=== PATIENT | female | born 1960 | race Caucasian/White ===

== ENCOUNTER 2024-04-18 06:07 | Day surgery (SDC) | payer MEDICARE, MEDICAID ==
[~2024-04-18] VITALS: Ht 170.2 cm; Wt 83.2 kg
[2024-04-18] MEDS: cefazolin 2gm/D5W 100mL 100 ML IV ONE (05:30)
[~2024-04-18 06:07] MED LIST: ALBU18HF2 INH; AMLO2.5T5 PO; BREX2TAB PO; CITA20TA28 PO; GLIP2.5T29 PO; Insulin Reg/NS 100units/100mL 100 ML IV SCH; LOSA100T58 PO; SIMV-42 PO; dextrose 50%-water 50ml dispensing syringe IV PRN
[2024-04-18 06:30] VITALS: BP 140/75; PULSE 73; RESP 15; RESP 16; TEMP 97.9; O2SAT 99
[2024-04-18] MEDS ORDERED: midazolam 1 mg/ML 2ml injection IV ONE (07:45)
[2024-04-18 07:47] LABS: HEMOGLOBIN A1C 5.4 % (4.5-6.2)
[2024-04-18 07:53] VITALS: BP_SYST 140; PULSE 73
[2024-04-18] MEDS: metoprolol tartrate 12.5mg (1/2 tablet) PO ONE (07:53)
[2024-04-18] MEDS: ringers solution, lacted 1,000 ML IV SCH (07:54)
[2024-04-18] MEDS: famotidine 20mg tablet PO ONE (07:55)
[2024-04-18 08:00] LABS: ALBUMIN 3.4 G/DL (3.4-5.0); ALBUMIN/GLOBULIN RATIO 0.9 (1.1-1.5); ALKALINE PHOSPHATASE 51 IU/L (46-116); ANION GAP 7 (8-16); BLOOD UREA NITROGEN 8 MG/DL (7-18); BUN/CREATININE RATIO 10.8 (10.0-20.0); CALCIUM 8.6 MG/DL (8.5-10.1); CHLORIDE 106 MMOL/L (99-107); CREATININE 0.74 MG/DL (0.40-0.90); GLUCOSE 85 MG/DL (70-104); POTASSIUM 3.7 MMOL/L (3.5-5.1); PRE OP ALT 27 U/L (30-65); PRE OP ANION GAP 7 (8-16); PRE OP AST 34 U/L (10-37); PRE OP BILIRUB, TOTAL 0.7 MG/DL (0.0-1.0); PRE OP GLUCOSE 85 MG/DL (70-104); PRE OP POTASSIUM 3.7 MMOL/L (3.4-5.1); PRE OP SODIUM 138 MMOL/L (135-145); SODIUM 138 MMOL/L (135-145); TOTAL CARBON DIOXIDE 24.8 MMOL/L (24-32); TOTAL PROTEIN 7.4 G/DL (6.4-8.2); eCRCL 75 ML/MIN; eGFR 79 ML/MIN
[2024-04-18 11:52] LABS: BILIRUBIN,URINE NEGATIVE (Neg); CLARITY,URINE CLEAR (Clear); COLOR,URINE YELLOW (Yellow); GLUCOSE, URINE NEGATIVE (Neg); KETONES,URINE NEGATIVE (Neg); LEUKOCYTE ESTERASE ,URINE TRACE (Neg); NITRITES, URINE NEGATIVE (Neg); OCCULT BLOOD,URINE NEGATIVE (Neg); PH,URINE 6.5 (4.8-8.0); PROTEIN,URINE NEGATIVE (Neg); UROBILINOGEN,URINE 0.2 E.U/dL (0.2-1.0)
[2024-04-18 11:57] LABS: UA COLLECTION TYPE VOIDED
[2024-04-18 11:58] LABS: BACTERIA,URINE FEW /HPF (Neg); MUCUS STRANDS FEW /LPF (Neg); RBC,URINE 0-2 /HPF (0-2); SQUAMOUS EPITHELIAL CELL,UR MODERATE /LPF (FEW); WBC,URINE 0-4 /HPF (0-4)
== END 2024-04-18 11:00 | disposition home or self-care (01) ==
LOC: PAS IN 06:07 → UNDOADMIN 06:07 → OR 06:07 → EDSTATUS 08:30 → OR 11:00
PROVIDERS: ATTEND Thoracic Surgery (Cardiothoracic Vascular Surgery)
DX: I25.10 Atherosclerotic heart disease of native coronary artery without angina pectoris (principal); Z53.8 Procedure and treatment not carried out for other reasons; I10 Essential (primary) hypertension; E11.9 Type 2 diabetes mellitus without complications; E66.9 Obesity, unspecified; E78.5 Hyperlipidemia, unspecified; Z79.84 Long term (current) use of oral hypoglycemic drugs; Z79.899 Other long term (current) drug therapy; Z98.890 Other specified postprocedural states; Z68.28 Body mass index [BMI] 28.0-28.9, adult; Z88.0 Allergy status to penicillin
CPT/HCPCS: 36415; 36600; 71045; 80048; 80053; 80061; 81001; 82803; 82948; 83036; 85018; 85025; 85610; 85730; 86870; 86885; 86900; 86901; 86902; 86905; 86922; 87081; 87088; 93005; 93880; A4333; A4615; A6258; A6402; C1894; J0690; J1644; J1815; J2001; J2250; J3010; J3490; J7030; J7120; Q0163; Q9967; Z7610; 93458; 99152; A6449

== ENCOUNTER 2024-04-25 05:56 | Inpatient (IN) | payer MEDICARE, MEDICAID ==
[2024-04-25] VITALS (22 sets, daily range): BP systolic 124–165; BP diastolic 44–83; PULSE 74–107; RESP 12–22; TEMP 99.1; O2SAT 87–100
[~2024-04-25] VITALS: Ht 170.2 cm; Wt 86.7 kg
[2024-04-25] MEDS: Insulin Reg/NS 100units/100mL 100 ML IV SCH (05:30)
[~2024-04-25 05:56] MED LIST changes: -Insulin Reg/NS 100units/100mL 100 ML IV SCH; +cefazolin 2gm/D5W 100mL 100 ML IV ONE; -dextrose 50%-water 50ml dispensing syringe IV PRN
[2024-04-25] MEDS: ceFAZolin 1000mg inj ONE (06:08)
[2024-04-25] MEDS: heparin 10,000 units/1 ML INJ ONE (06:08)
[2024-04-25] MEDS: BUPIVAcaine/PF 2.5mg/ml (0.25%) 10ml vial ONE (06:08)
[2024-04-25] MEDS: ringers solution, lacted 1,000 ML IV SCH (07:14)
[2024-04-25] MEDS: vancomycin 1,500 MG in NS 300ml IV soln IV ONE (07:14)
[2024-04-25] MEDS: cefazolin 2gm/D5W 100mL 100 ML IV ONE (07:20)
[2024-04-25] MEDS: metoprolol tartrate 12.5mg (1/2 tablet) PO ONE (07:24)
[2024-04-25] MEDS: famotidine 20mg tablet PO ONE (07:25)
[2024-04-25] MEDS ORDERED: MIDAZolam 1mg/ml 10ml vial ONE (07:38)
[2024-04-25] MEDS ORDERED: SUfentanil 50mcg/ml 1ml amp IV ONE (07:39)
[2024-04-25] MEDS ORDERED: isoflurane 100ml inhalation liquid IH ONE (07:45)
[2024-04-25] MEDS: FENTANYL-0.9 % NACL/PF 100 ML IV SCH (07:50)
[2024-04-25] MEDS ORDERED: fentaNYL/PF 50MCG/1 ML 2ML syringe IV PRN (07:50)
[2024-04-25] MEDS: midazolam 100mg in NS 100ml 100 ML IV SCH (07:50)
[2024-04-25] MEDS: midazolam 1 mg/ML 2ml injection IV ONE ×2 (07:50→07:52)
[2024-04-25] MEDS ORDERED: papaverine 30 mg/ml 2ml inj. ONE (08:00)
[2024-04-25] MEDS: BUPIVAcaine/PF 2.5mg/ml (0.25%) 10ml vial IJ ONE (08:00)
[2024-04-25 08:35] LABS: ABG BASE EXCESS -2.6 mmol/L (-2.0-2.0); ABG HCO3 22.1 mmol/L (22.0-26.0); ABG OXYGEN SATURATION 99.6 % (92-98.5); ABG PCO2 37.9 mmHg (35.0-48.0); ABG PH 7.383 (7.350-7.450); ABG PO2 416.8 mmHg (75.0-100.0); CL (ABG) 106 mmol/L (99-107); FCOHb 3.1 % (0.5-1.5); FHHb 0.4 % (0.0-5.0); FMetHb 0.3 % (0.0-1.5); FO2Hb 96.2 % (94-97); GLUCOSE (ABG) 159 mg/dl (70-104); IONIZED CA (ABG) 1.07 mmol/L (1.10-1.30); TOTAL HEMOGLOBIN 13.3 G/dl (12.0-16.0)
[2024-04-25] MEDS ORDERED: LIDOcaine 2% (20mg/ml) 5ml vial ONE (08:47)
[2024-04-25] MEDS ORDERED: propofol inj 20 ML IV ONE (08:47)
[2024-04-25] MEDS ORDERED: 0.9 % SODIUM CHLORIDE 10 ML VIAL ONE (08:47)
[2024-04-25] MEDS ORDERED: rocuronium 10mg/ml inj IV ONE ×3 (08:47)
[2024-04-25] MEDS ORDERED: phenylephrine 10mg/ml inj. -priapism dosing ONE (08:47)
[2024-04-25] MEDS ORDERED: albumin (Human) 5% 250ml 250 ML IV ONE (08:51)
[2024-04-25] MEDS ORDERED: succinylcholine 20mg/ml inj IV ONE (08:57)
[2024-04-25 09:46] LABS: ABG BASE EXCESS -1.3 mmol/L (-2.0-2.0); ABG HCO3 24.9 mmol/L (22.0-26.0); ABG OXYGEN SATURATION 98.8 % (92-98.5); ABG PCO2 47.5 mmHg (35.0-48.0); ABG PH 7.337 (7.350-7.450); ABG PO2 151.5 mmHg (75.0-100.0); CL (ABG) 107 mmol/L (99-107); FCOHb 2.5 % (0.5-1.5); FHHb 1.2 % (0.0-5.0); FMetHb 0.3 % (0.0-1.5); GLUCOSE (ABG) 141 mg/dl (70-104); IONIZED CA (ABG) 1.08 mmol/L (1.10-1.30); K (ABG) 4.2 mmol/L (3.5-5.1); TOTAL HEMOGLOBIN 12.7 G/dl (12.0-16.0)
[2024-04-25] MEDS ORDERED: LOSA50TA64 PO (10:39)
[2024-04-25] MEDS ORDERED: dexamethasone sod phosphate 4mg/ml inj. ONE (10:51)
[2024-04-25] MEDS ORDERED: ondansetron/PF 4mg/2ml inj ONE (10:51)
[2024-04-25 10:58] LABS: ABG BASE EXCESS -2.2 mmol/L (-2.0-2.0); ABG HCO3 23.1 mmol/L (22.0-26.0); ABG OXYGEN SATURATION 98.3 % (92-98.5); ABG PCO2 41.9 mmHg (35.0-48.0); ABG PO2 136.8 mmHg (75.0-100.0); ACTIVATED CLOTTING TIME 147 SEC (101-148); CL (ABG) 107 mmol/L (99-107); FCOHb 1.5 % (0.5-1.5); FHHb 1.7 % (0.0-5.0); FMetHb 0.3 % (0.0-1.5); FO2Hb 96.5 % (94-97); GLUCOSE (ABG) 151 mg/dl (70-104); IONIZED CA (ABG) 1.05 mmol/L (1.10-1.30); K (ABG) 4.2 mmol/L (3.5-5.1)
[2024-04-25 12:13] LABS: ABG BASE EXCESS -7.5 mmol/L (-2.0-2.0); ABG HCO3 19.5 mmol/L (22.0-26.0); ABG OXYGEN SATURATION 98.5 % (92-98.5); ABG PCO2 (T) 43.6 mmHg (32.0-45.0); ABG PH (T) 7.264 (7.350-7.450); ABG PO2 (T) 141.9 mmHg (75.0-100.0); FCOHb 1.4 % (0.5-1.5); FHHb 1.5 % (0.0-5.0); FMetHb 0.3 % (0.0-1.5); FO2Hb 96.8 % (94-97); MODE VENT - SIMV/VC; PATIENT TEMPERATURE 36.1; PEEP 5 cm H2O; RESPIRATORY RATE 12 b/min; TIDAL VOLUME 600 mL; TOTAL HEMOGLOBIN 13.3 G/dl (12.0-16.0)
[2024-04-25] MEDS: morphine 2 MG/ML inj. syringe IV PRN (12:14)
[2024-04-25] MEDS: albumin (Human) 5% 250ml 250 ML IV ONE (12:31)
[2024-04-25] MEDS ORDERED: ondansetron/PF 4mg/2ml inj IV PRN (12:35)
[2024-04-25] MEDS ORDERED: mineral oil 133ml enema RC PRN (12:35)
[2024-04-25] MEDS ORDERED: potassium CL 10mEq/100ml bag 100 ML IV PRN (12:35)
[2024-04-25] MEDS ORDERED: potassium Cl 40MEQ/1/2NS 520ml 520 ML IV PRN (12:35)
[2024-04-25] MEDS ORDERED: sodium phosphate inj. 30 MMOL in dextrose 5%-water 250 ML IV PRN (12:35)
[2024-04-25] MEDS ORDERED: Insulin Reg/NS 100units/100mL 100 ML IV SCH (12:35)
[2024-04-25] MEDS ORDERED: potassium Cl 40MEQ/270ML bag 250 ML IV PRN (12:35)
[2024-04-25] MEDS ORDERED: Neutra Phos packet PO PRN (12:35)
[2024-04-25] MEDS ORDERED: acetaminophen 325mg tablet PO PRN (12:35)
[2024-04-25] MEDS ORDERED: morphine 4 MG/ML inj SYRINge IV PRN (12:35)
[2024-04-25] MEDS ORDERED: metoclopramide 5 mg/ml inj IV PRN (12:35)
[2024-04-25] MEDS ORDERED: DOPamine 400mg/D5W 250ml 250 ML IV PRN (12:35)
[2024-04-25] MEDS ORDERED: HYDROcodone/acetaminophen 10/325mg tab PO PRN (12:35)
[2024-04-25] MEDS ORDERED: normal saline 250ml IV soln 250 ML IV PRN (12:35)
[2024-04-25] MEDS ORDERED: potassium Cl 20 mEq SR tablet PO PRN (12:35)
[2024-04-25] MEDS ORDERED: insulin glargine (Lantus) pen - multi-dose SQ PRN (12:35)
[2024-04-25] MEDS ORDERED: dextrose 50%-water 50ml dispensing syringe IV PRN (12:35)
[2024-04-25] MEDS ORDERED: morphine 2 MG/ML inj. syringe IV PRN (12:35)
[2024-04-25] MEDS: sodium chloride 0.45% 1,000 ML IV SCH (12:47)
[2024-04-25 12:55] LABS: BASOPHILS % (AUTO) 0.4 % (0-1); EOSINOPHILS # (AUTO) 0.1 X10'3 (0-0.9); EOSINOPHILS % (AUTO) 1.1 % (0-6); HEMATOCRIT 37.5 % (35.0-45.0); HEMOGLOBIN 12.5 g/dl (12.0-16.0); LYMPHOCYTES # (AUTO) 2.9 X10'3 (1.1-4.8); LYMPHOCYTES % (AUTO) 24.7 % (21-51); MEAN CORPUSCULAR HEMOGLOBIN 33.9 PG (27.0-31.0); MEAN CORPUSCULAR HGB CONC 33.4 g/dL (33.0-36.5); MEAN CORPUSCULAR VOLUME 101.6 FL (78-98); MEAN PLATELET VOLUME 7.8 FL (7.4-10.4); MONOCYTES # (AUTO) 0.6 X10'3 (0-0.9); MONOCYTES % (AUTO) 4.7 % (2-12); NEUTROPHILS # (AUTO) 8.2 X10'3 (1.8-7.7); NEUTROPHILS % (AUTO) 69.1 % (42-75); PLATELET COUNT 177 X10'3 (140-440); RED BLOOD COUNT 3.69 X10'6 (4.20-5.60); RED CELL DISTRIBUTION WIDTH 14.6 % (11.5-14.5); WHITE BLOOD COUNT 11.9 X10'3 (4.5-11.0)
[2024-04-25 12:57] LABS: APTT 48 SECONDS (22-32); FIBRINOGEN 248 MG/DL (177-424); INR 1.1 INR; PROTHROMBIN TIME 11.9 SECONDS (9.0-12.0)
[2024-04-25 12:59] LABS: ALANINE AMINOTRANSFERASE 19 U/L (12-78); ALBUMIN 3.1 G/DL (3.4-5.0); ALBUMIN/GLOBULIN RATIO 1.1 (1.1-1.5); ALKALINE PHOSPHATASE 37 IU/L (46-116); ANION GAP 7 (8-16); ASPARTATE AMINO TRANSFERASE 26 U/L (10-37); BILIRUBIN,TOTAL 0.8 MG/DL (0.1-1.0); BLOOD UREA NITROGEN 10 MG/DL (7-18); BUN/CREATININE RATIO 13.9 (10.0-20.0); CALCIUM 7.6 MG/DL (8.5-10.1); CHLORIDE 106 MMOL/L (99-107); CREATININE 0.72 MG/DL (0.40-0.90); GLUCOSE 145 MG/DL (70-104); MAGNESIUM 1.5 MG/DL (1.5-2.4); PHOSPHORUS 2.8 MG/DL (2.3-4.5); POTASSIUM 4.1 MMOL/L (3.5-5.1); SODIUM 138 MMOL/L (135-145); TOTAL CARBON DIOXIDE 24.7 MMOL/L (24-32); eCRCL 77 ML/MIN; eGFR 82 ML/MIN
[2024-04-25] MEDS: albumin (Human) 5% 250ml 250 ML IV PRN (13:37)
[2024-04-25] MEDS: gabapentin 300mg capsule PO SCH (13:38)
[2024-04-25] MEDS: potassium Cl 20mEq/100mL bag 100 ML IV PRN (13:39)
[2024-04-25] MEDS: magnesium sulf-water 4G/100mL 100 ML IV PRN (13:40)
[2024-04-25 14:52] LABS: ABG BASE EXCESS -2.7 mmol/L (-2.0-2.0); ABG HCO3 22.2 mmol/L (22.0-26.0); ABG OXYGEN SATURATION 93.9 % (92-98.5); ABG PH (T) 7.382 (7.350-7.450); ABG PO2 (T) 71.9 mmHg (75.0-100.0); FCOHb 0.9 % (0.5-1.5); FMetHb 0.3 % (0.0-1.5); FO2Hb 92.8 % (94-97); MODE VENT - CPAP/PS; PATIENT TEMPERATURE 36.7; PEEP 5 cm H2O; TOTAL HEMOGLOBIN 11.7 G/dl (12.0-16.0)
[2024-04-25] MEDS: ceFAZolin/D5W- 1GM premix 50 ML IV SCH (16:22)
[2024-04-25] MEDS: magnesium sulf-water 2g/50mL 50 ML IV PRN (17:55)
[2024-04-25] MEDS: niCARDipine-NS 40mg/200ml IVPB 200 ML IV PRN (18:17)
[2024-04-25 19:09] LABS: ABG BASE EXCESS -2.3 mmol/L (-2.0-2.0); ABG HCO3 22.6 mmol/L (22.0-26.0); ABG OXYGEN SATURATION 90.8 % (92-98.5); ABG PCO2 (T) 40.4 mmHg (32.0-45.0); ABG PH (T) 7.368 (7.350-7.450); ABG PO2 (T) 64.5 mmHg (75.0-100.0); FCOHb 0.7 % (0.5-1.5); FHHb 9.1 % (0.0-5.0); FLOW 14 L/min; FMetHb 0.3 % (0.0-1.5); FO2Hb 89.9 % (94-97); MODE MASK - SIMPLE; PATIENT TEMPERATURE 37.7; TOTAL HEMOGLOBIN 12.1 G/dl (12.0-16.0)
[2024-04-25] MEDS: methylPREDNISolone sod succ/PF 40mg inj. IV SCH (19:16)
[2024-04-25] MEDS: albuterol 2.5 MG/3 ML nebule NEB PRN (19:16)
[2024-04-25] MEDS: furosemide 40mg/4ml inj IV SCH (19:16)
[2024-04-25] MEDS: vancomycin/NS 1 GM ADD-VANTAGE 250 ML IV SCH (20:50)
[2024-04-25] MEDS: mupirocin 2% nasal ointment 1gm UD NS SCH (20:50)
[2024-04-25] MEDS: atorvastatin 10mg tablet PO SCH (20:51)
[2024-04-25] MEDS: sennosides/docusate sodium tablet PO SCH (20:51)
[2024-04-25] MEDS: citalopram 20mg tablet PO SCH (21:00)
[2024-04-25 21:42] LABS: BASOPHILS % (AUTO) 0.1 % (0-1); EOSINOPHILS % (AUTO) 0 % (0-6); HEMATOCRIT 34.8 % (35.0-45.0); HEMOGLOBIN 11.6 g/dl (12.0-16.0); LYMPHOCYTES # (AUTO) 0.5 X10'3 (1.1-4.8); LYMPHOCYTES % (AUTO) 4.8 % (21-51); MEAN CORPUSCULAR HEMOGLOBIN 33.4 PG (27.0-31.0); MEAN CORPUSCULAR HGB CONC 33.2 g/dL (33.0-36.5); MEAN CORPUSCULAR VOLUME 100.5 FL (78-98); MONOCYTES # (AUTO) 0.4 X10'3 (0-0.9); MONOCYTES % (AUTO) 3.3 % (2-12); NEUTROPHILS # (AUTO) 9.9 X10'3 (1.8-7.7); NEUTROPHILS % (AUTO) 91.8 % (42-75); PLATELET COUNT 170 X10'3 (140-440); RED BLOOD COUNT 3.46 X10'6 (4.20-5.60); RED CELL DISTRIBUTION WIDTH 14.3 % (11.5-14.5); WHITE BLOOD COUNT 10.8 X10'3 (4.5-11.0)
[2024-04-25] MEDS: mineral oil/petrolatum ophthal oint EACHEYE SCH (21:45)
[2024-04-25 21:56] LABS: ALBUMIN 3.4 G/DL (3.4-5.0); ANION GAP 8 (8-16); BLOOD UREA NITROGEN 8 MG/DL (7-18); BUN/CREATININE RATIO 11.8 (10.0-20.0); CALCIUM 7.8 MG/DL (8.5-10.1); CHLORIDE 102 MMOL/L (99-107); CREATININE 0.68 MG/DL (0.40-0.90); GLUCOSE 127 MG/DL (70-104); MAGNESIUM 3.1 MG/DL (1.5-2.4); PHOSPHORUS 2.2 MG/DL (2.3-4.5); POTASSIUM 4.1 MMOL/L (3.5-5.1); SODIUM 134 MMOL/L (135-145); TOTAL CARBON DIOXIDE 24.3 MMOL/L (24-32); eCRCL 81 ML/MIN; eGFR 87 ML/MIN
[2024-04-25] MEDS: nitroGLYCERIN-Tridil 50MG/D5W 250 ML IV PRN (22:06)
[2024-04-25] MEDS: sodium phosphate inj. 15 MMOL in dextrose 5%-water 250 ML IV PRN (22:24)
[2024-04-26] VITALS (29 sets, daily range): BP systolic 93–145; BP diastolic 33–74; PULSE 85–113; RESP 12–21; O2SAT 92–97
[2024-04-26 04:01] LABS: BASOPHILS % (AUTO) 0.1 % (0-1); EOSINOPHILS % (AUTO) 0.1 % (0-6); HEMOGLOBIN 11.6 g/dl (12.0-16.0); LYMPHOCYTES # (AUTO) 0.8 X10'3 (1.1-4.8); LYMPHOCYTES % (AUTO) 6.4 % (21-51); MEAN CORPUSCULAR HEMOGLOBIN 33.5 PG (27.0-31.0); MEAN CORPUSCULAR HGB CONC 33.2 g/dL (33.0-36.5); MEAN PLATELET VOLUME 7.7 FL (7.4-10.4); MONOCYTES # (AUTO) 0.4 X10'3 (0-0.9); NEUTROPHILS # (AUTO) 11.8 X10'3 (1.8-7.7); NEUTROPHILS % (AUTO) 90.4 % (42-75); PLATELET COUNT 167 X10'3 (140-440); RED BLOOD COUNT 3.47 X10'6 (4.20-5.60); RED CELL DISTRIBUTION WIDTH 14.5 % (11.5-14.5)
[2024-04-26 04:17] LABS: APTT 27 SECONDS (22-32); PROTHROMBIN TIME 10.5 SECONDS (9.0-12.0)
[2024-04-26 04:18] LABS: ALANINE AMINOTRANSFERASE 18 U/L (12-78); ALBUMIN 3.2 G/DL (3.4-5.0); ALKALINE PHOSPHATASE 29 IU/L (46-116); ANION GAP 8 (8-16); ASPARTATE AMINO TRANSFERASE 29 U/L (10-37); BILIRUBIN,TOTAL 0.7 MG/DL (0.1-1.0); BLOOD UREA NITROGEN 8 MG/DL (7-18); BUN/CREATININE RATIO 9.4 (10.0-20.0); CALCIUM 7.8 MG/DL (8.5-10.1); CHLORIDE 103 MMOL/L (99-107); CREATININE 0.85 MG/DL (0.40-0.90); GLUCOSE 150 MG/DL (70-104); MAGNESIUM 2.6 MG/DL (1.5-2.4); PHOSPHORUS 2.5 MG/DL (2.3-4.5); POTASSIUM 4.2 MMOL/L (3.5-5.1); SODIUM 136 MMOL/L (135-145); TOTAL CARBON DIOXIDE 24.6 MMOL/L (24-32); TOTAL PROTEIN 6.3 G/DL (6.4-8.2); eCRCL 65 ML/MIN; eGFR 67 ML/MIN
[2024-04-26] MEDS: aspirin 81mg tab.chew PO SCH (07:26)
[2024-04-26] MEDS: metoprolol tartrate 12.5mg (1/2 tablet) PO SCH (07:26)
[2024-04-26] MEDS: HYDROcodone/acetaminophen 10/325mg tab PO PRN (08:08)
[2024-04-26] MEDS: clopidogrel 75mg tablet PO SCH (12:18)
[2024-04-26] MEDS ORDERED: dextrose 50%-water 50ml dispensing syringe IV PRN ×2 (15:50)
[2024-04-26] MEDS ORDERED: DEXTROSE 15 GM of carb/4 tabs (each vial/BOTTLE has 4 tablets) PO PRN ×2 (15:50)
[2024-04-26] MEDS ORDERED: glucagon, human recombinant 1mg kit SUBCUT PRN (15:50)
[2024-04-26 16:39] LABS: ALANINE AMINOTRANSFERASE 20 U/L (12-78); ALBUMIN 3.1 G/DL (3.4-5.0); ALBUMIN/GLOBULIN RATIO 0.9 (1.1-1.5); ALKALINE PHOSPHATASE 33 IU/L (46-116); ANION GAP 6 (8-16); ASPARTATE AMINO TRANSFERASE 24 U/L (10-37); BILIRUBIN,TOTAL 0.7 MG/DL (0.1-1.0); BLOOD UREA NITROGEN 15 MG/DL (7-18); BUN/CREATININE RATIO 17.2 (10.0-20.0); CALCIUM 8.3 MG/DL (8.5-10.1); CHLORIDE 103 MMOL/L (99-107); CREATININE 0.87 MG/DL (0.40-0.90); GLUCOSE 220 MG/DL (70-104); MAGNESIUM 2.3 MG/DL (1.5-2.4); POTASSIUM 4.5 MMOL/L (3.5-5.1); SODIUM 137 MMOL/L (135-145); TOTAL CARBON DIOXIDE 28.1 MMOL/L (24-32); TOTAL PROTEIN 6.5 G/DL (6.4-8.2); eCRCL 64 ML/MIN; eGFR 66 ML/MIN
[2024-04-26] MEDS: INSULIN LISPRO 100 UNIT/ML INSULN.PEN MULTI-DOSE SQ SCH (17:06)
[2024-04-26] MEDS: insulin glargine (Lantus) pen - multi-dose SQ SCH (20:17)
[2024-04-27] VITALS (21 sets, daily range): BP systolic 92–119; BP diastolic 40–67; PULSE 82–105; RESP 12–22; TEMP 97.6–98.4; O2SAT 92–97
[2024-04-27 03:47] LABS: BASOPHILS % (AUTO) 0.3 % (0-1); EOSINOPHILS % (AUTO) 0 % (0-6); HEMATOCRIT 33.9 % (35.0-45.0); HEMOGLOBIN 11.1 g/dl (12.0-16.0); LYMPHOCYTES # (AUTO) 1.5 X10'3 (1.1-4.8); LYMPHOCYTES % (AUTO) 8.2 % (21-51); MEAN CORPUSCULAR HEMOGLOBIN 33.1 PG (27.0-31.0); MEAN CORPUSCULAR HGB CONC 32.8 g/dL (33.0-36.5); MEAN CORPUSCULAR VOLUME 100.9 FL (78-98); MEAN PLATELET VOLUME 8.1 FL (7.4-10.4); MONOCYTES # (AUTO) 0.9 X10'3 (0-0.9); MONOCYTES % (AUTO) 5.3 % (2-12); NEUTROPHILS # (AUTO) 15.2 X10'3 (1.8-7.7); NEUTROPHILS % (AUTO) 86.2 % (42-75); PLATELET COUNT 149 X10'3 (140-440); RED BLOOD COUNT 3.36 X10'6 (4.20-5.60); RED CELL DISTRIBUTION WIDTH 14.3 % (11.5-14.5); WHITE BLOOD COUNT 17.7 X10'3 (4.5-11.0)
[2024-04-27 03:52] LABS: ALBUMIN 3.1 G/DL (3.4-5.0); ANION GAP 5 (8-16); BLOOD UREA NITROGEN 18 MG/DL (7-18); BUN/CREATININE RATIO 28.1 (10.0-20.0); CALCIUM 8.5 MG/DL (8.5-10.1); CHLORIDE 102 MMOL/L (99-107); CREATININE 0.64 MG/DL (0.40-0.90); GLUCOSE 187 MG/DL (70-104); MAGNESIUM 2.4 MG/DL (1.5-2.4); POTASSIUM 4.7 MMOL/L (3.5-5.1); SODIUM 138 MMOL/L (135-145); TOTAL CARBON DIOXIDE 30.9 MMOL/L (24-32); eCRCL 86 ML/MIN; eGFR > 90 ML/MIN
[2024-04-27] MEDS: pantoprazole 40mg Tablet.DR PO SCH (08:06)
[2024-04-27] MEDS: multivitamins, therapeutics tablet PO SCH (09:53)
[2024-04-27] MEDS: folic acid 1mg tablet PO SCH (09:53)
[2024-04-27] MEDS ORDERED: citalopram 20mg tablet PO SCH (12:00)
[2024-04-27] MEDS: citalopram 20mg tablet PO SCH (13:06)
[2024-04-27] MEDS: simvastatin 20mg tablet PO SCH (18:11)
[2024-04-27] MEDS: thiamine 100mg tablet PO SCH (21:01)
[2024-04-28] VITALS (15 sets, daily range): BP systolic 92–122; BP diastolic 48–76; PULSE 77–127; RESP 15–22; TEMP 96.7–98.3; O2SAT 92–97
[2024-04-28] MEDS: amiodarone 150mg/dext, iso-os 100 ML IV ONE (03:16)
[2024-04-28] MEDS: amiodarone/D5 360MG/200ML BAG 200 ML IV SCH (03:47)
[2024-04-28 06:20] LABS: BASOPHILS % (AUTO) 0.2 % (0-1); EOSINOPHILS % (AUTO) 0.3 % (0-6); HEMATOCRIT 36.4 % (35.0-45.0); HEMOGLOBIN 12.3 g/dl (12.0-16.0); LYMPHOCYTES # (AUTO) 2.8 X10'3 (1.1-4.8); LYMPHOCYTES % (AUTO) 26.4 % (21-51); MEAN CORPUSCULAR HEMOGLOBIN 34.3 PG (27.0-31.0); MEAN CORPUSCULAR HGB CONC 33.8 g/dL (33.0-36.5); MEAN CORPUSCULAR VOLUME 101.4 FL (78-98); MONOCYTES # (AUTO) 0.8 X10'3 (0-0.9); NEUTROPHILS % (AUTO) 65.1 % (42-75); PLATELET COUNT 177 X10'3 (140-440); RED BLOOD COUNT 3.59 X10'6 (4.20-5.60); RED CELL DISTRIBUTION WIDTH 14.8 % (11.5-14.5); WHITE BLOOD COUNT 10.7 X10'3 (4.5-11.0)
[2024-04-28 06:21] LABS: ACT @ 1.70 U 364 SEC (193-297); ACT @ 2.84 U 501 SEC (260-420); BASELINE ACT 145 SEC (101-148); PATIENT WEIGHT 84.0k KG
[2024-04-28 06:34] LABS: ANION GAP 8 (8-16); BLOOD UREA NITROGEN 13 MG/DL (7-18); BUN/CREATININE RATIO 19.4 (10.0-20.0); CALCIUM 8.5 MG/DL (8.5-10.1); CHLORIDE 101 MMOL/L (99-107); CREATININE 0.67 MG/DL (0.40-0.90); GLUCOSE 167 MG/DL (70-104); MAGNESIUM 1.7 MG/DL (1.5-2.4); PHOSPHORUS 2.5 MG/DL (2.3-4.5); POTASSIUM 4.2 MMOL/L (3.5-5.1); SODIUM 135 MMOL/L (135-145); TOTAL CARBON DIOXIDE 25.7 MMOL/L (24-32); eCRCL 82 ML/MIN; eGFR 89 ML/MIN
[2024-04-28] MEDS: magnesium hydroxide 30ml (MOM) UD suspension PO PRN (07:58)
[2024-04-28] MEDS: furosemide 20MG tablet PO ONE (11:13)
[2024-04-28] MEDS: magnesium oxide 400mg tablet PO ONE (11:13)
[2024-04-28] MEDS ORDERED: ondansetron 4mg rapidly disintigrating tab PO PRN (15:14)
[2024-04-29] VITALS (15 sets, daily range): BP systolic 100–160; BP diastolic 58–98; PULSE 76–96; RESP 12–26; TEMP 97.2–98.2; O2SAT 91–96
[2024-04-29 06:14] LABS: BASOPHILS % (AUTO) 0.2 % (0-1); EOSINOPHILS # (AUTO) 0.1 X10'3 (0-0.9); EOSINOPHILS % (AUTO) 1.6 % (0-6); HEMATOCRIT 36.4 % (35.0-45.0); HEMOGLOBIN 12.2 g/dl (12.0-16.0); LYMPHOCYTES # (AUTO) 2.5 X10'3 (1.1-4.8); LYMPHOCYTES % (AUTO) 29.9 % (21-51); MEAN CORPUSCULAR HEMOGLOBIN 33.8 PG (27.0-31.0); MEAN CORPUSCULAR HGB CONC 33.7 g/dL (33.0-36.5); MEAN CORPUSCULAR VOLUME 100.3 FL (78-98); MEAN PLATELET VOLUME 7.8 FL (7.4-10.4); MONOCYTES # (AUTO) 0.7 X10'3 (0-0.9); MONOCYTES % (AUTO) 8.6 % (2-12); NEUTROPHILS # (AUTO) 4.9 X10'3 (1.8-7.7); NEUTROPHILS % (AUTO) 59.7 % (42-75); PLATELET COUNT 202 X10'3 (140-440); RED BLOOD COUNT 3.63 X10'6 (4.20-5.60); RED CELL DISTRIBUTION WIDTH 14.2 % (11.5-14.5); WHITE BLOOD COUNT 8.3 X10'3 (4.5-11.0)
[2024-04-29 06:27] LABS: ALBUMIN 2.8 G/DL (3.4-5.0); ANION GAP 8 (8-16); BLOOD UREA NITROGEN 11 MG/DL (7-18); BUN/CREATININE RATIO 18.6 (10.0-20.0); CALCIUM 8.9 MG/DL (8.5-10.1); CHLORIDE 102 MMOL/L (99-107); CREATININE 0.59 MG/DL (0.40-0.90); GLUCOSE 126 MG/DL (70-104); MAGNESIUM 1.8 MG/DL (1.5-2.4); POTASSIUM 3.9 MMOL/L (3.5-5.1); SODIUM 136 MMOL/L (135-145); TOTAL CARBON DIOXIDE 26.3 MMOL/L (24-32); eCRCL 94 ML/MIN; eGFR > 90 ML/MIN
[2024-04-29] MEDS ORDERED: magnesium citrate 296ml oral solution PO PRN (07:55)
[2024-04-29] MEDS: furosemide 20MG tablet PO ONE (08:14)
[2024-04-29] MEDS: amiodarone 200mg tablet PO SCH (08:14)
[2024-04-29] MEDS: potassium chloride 8mEq ER tablet PO ONE (08:14)
[2024-04-29] MEDS: magnesium oxide 400mg tablet PO ONE (08:15)
[2024-04-29] MEDS: furosemide 40mg/4ml inj IV ONE (10:35)
[2024-04-29] MEDS: bisacodyl 10mg suppository rectal RC PRN (10:36)
[2024-04-29] MEDS: acetaminophen 325mg tablet PO PRN (23:33)
[2024-04-30] VITALS (26 sets, daily range): BP systolic 93–133; BP diastolic 42–80; PULSE 79–138; RESP 11–23; TEMP 95.7–97.9; O2SAT 93–95
[2024-04-30] MEDS: amiodarone/D5 360MG/200ML BAG 200 ML IV SCH (05:45)
[2024-04-30 07:34] LABS: MAGNESIUM 2.1 MG/DL (1.5-2.4); PHOSPHORUS 4.5 MG/DL (2.3-4.5)
[2024-04-30 09:14] LABS: ALBUMIN 2.9 G/DL (3.4-5.0); ANION GAP 12 (8-16); BLOOD UREA NITROGEN 13 MG/DL (7-18); BUN/CREATININE RATIO 18.3 (10.0-20.0); CALCIUM 9.1 MG/DL (8.5-10.1); CHLORIDE 102 MMOL/L (99-107); CREATININE 0.71 MG/DL (0.40-0.90); GLUCOSE 107 MG/DL (70-104); POTASSIUM 3.5 MMOL/L (3.5-5.1); SODIUM 137 MMOL/L (135-145); TOTAL CARBON DIOXIDE 22.8 MMOL/L (24-32); eCRCL 78 ML/MIN; eGFR 83 ML/MIN
[2024-04-30] MEDS: JUVEN Smoothie Arginine/Glut./Ca2+Bmb (Juven 19.3pkt) 240ml cup PO SCH (17:30)
[2024-04-30] MEDS: magnesium oxide 400mg tablet PO ONE (17:39)
[2024-05-01] VITALS (10 sets, daily range): BP systolic 93–153; BP diastolic 44–69; PULSE 82–139; RESP 14–18; TEMP 96.9–98; O2SAT 92–96
[2024-05-01 06:12] LABS: MAGNESIUM 1.9 MG/DL (1.5-2.4); PHOSPHORUS 4.4 MG/DL (2.3-4.5); POTASSIUM 3.8 MMOL/L (3.5-5.1)
[2024-05-01 09:58] LABS: ALBUMIN 2.7 G/DL (3.4-5.0); ANION GAP 13 (8-16); BLOOD UREA NITROGEN 20 MG/DL (7-18); CHLORIDE 102 MMOL/L (99-107); CREATININE 0.77 MG/DL (0.40-0.90); GLUCOSE 129 MG/DL (70-104); SODIUM 137 MMOL/L (135-145); TOTAL CARBON DIOXIDE 22.1 MMOL/L (24-32); eCRCL 72 ML/MIN; eGFR 75 ML/MIN
[2024-05-01] MEDS: VANCOmycin 1250MG/NS 250ml Bag 250 ML IV SCH (11:46)
[2024-05-01] MEDS: potassium Cl 20 mEq SR tablet PO STA (17:33)
[2024-05-01] MEDS: magnesium oxide 400mg tablet PO ONE (17:34)
[2024-05-01] MEDS: furosemide 40mg/4ml inj IV ONE (17:36)
[2024-05-01] MEDS: apixaban 5mg tablet PO SCH (20:25)
[2024-05-02 02:00] VITALS: BP 108/67; PULSE 82; RESP 18; TEMP 97.5; O2SAT 91
[2024-05-02 06:00] VITALS: BP 118/71; PULSE 82; RESP 14; TEMP 98; O2SAT 93
[2024-05-02 07:49] LABS: BASOPHILS % (AUTO) 0.5 % (0-1); EOSINOPHILS # (AUTO) 0.2 X10'3 (0-0.9); EOSINOPHILS % (AUTO) 2.3 % (0-6); HEMATOCRIT 38.9 % (35.0-45.0); HEMOGLOBIN 13.5 g/dl (12.0-16.0); LYMPHOCYTES # (AUTO) 2.3 X10'3 (1.1-4.8); LYMPHOCYTES % (AUTO) 27.6 % (21-51); MEAN CORPUSCULAR HEMOGLOBIN 34.4 PG (27.0-31.0); MEAN CORPUSCULAR HGB CONC 34.8 g/dL (33.0-36.5); MEAN CORPUSCULAR VOLUME 98.9 FL (78-98); MEAN PLATELET VOLUME 7.9 FL (7.4-10.4); MONOCYTES % (AUTO) 11.4 % (2-12); NEUTROPHILS # (AUTO) 4.9 X10'3 (1.8-7.7); NEUTROPHILS % (AUTO) 58.2 % (42-75); PLATELET COUNT 293 X10'3 (140-440); RED BLOOD COUNT 3.93 X10'6 (4.20-5.60); RED CELL DISTRIBUTION WIDTH 14.2 % (11.5-14.5); WHITE BLOOD COUNT 8.5 X10'3 (4.5-11.0)
[2024-05-02 08:22] LABS: ALBUMIN 2.7 G/DL (3.4-5.0); ANION GAP 12 (8-16); BLOOD UREA NITROGEN 21 MG/DL (7-18); BUN/CREATININE RATIO 25.6 (10.0-20.0); CALCIUM 8.9 MG/DL (8.5-10.1); CHLORIDE 101 MMOL/L (99-107); CREATININE 0.82 MG/DL (0.40-0.90); GLUCOSE 140 MG/DL (70-104); PHOSPHORUS 4.4 MG/DL (2.3-4.5); SODIUM 138 MMOL/L (135-145); TOTAL CARBON DIOXIDE 24.7 MMOL/L (24-32); eCRCL 67 ML/MIN; eGFR 70 ML/MIN
[2024-05-02] MEDS ORDERED: APIX5TAB3 PO (08:42)
[2024-05-02] MEDS ORDERED: POTA-206 PO (08:43)
[2024-05-02] MEDS ORDERED: MAGN400T56 PO (08:43)
[2024-05-02] MEDS ORDERED: ATOR10TA PO (08:43)
[2024-05-02] MEDS ORDERED: FURO-150 PO (08:43)
[2024-05-02] MEDS ORDERED: LOP12.5T PO (08:43)
[2024-05-02] MEDS ORDERED: HYDR-3965 PO (08:43)
[2024-05-02] MEDS ORDERED: AMI200T PO (08:43)
[2024-05-02] MEDS ORDERED: CLOP75TA34 PO (09:05)
[2024-05-02 11:00] VITALS: BP 111/63; PULSE 77; RESP 17; TEMP 97.6; O2SAT 92
[2024-05-02 11:27] VITALS: RESP 14
[2024-05-02] MEDS ORDERED: VANCOMYCIN LEVEL IV ONE (21:30)
== END 2024-05-02 12:47 | disposition home or self-care (01) | DRG 235 ==
LOC: PAS IN 05:56 → CICU 2S 11:30 → PCU 3S 04-27 17:33
PROVIDERS: ADMIT Thoracic Surgery (Cardiothoracic Vascular Surgery); ATTEND Thoracic Surgery (Cardiothoracic Vascular Surgery)
PROC: 5A1221Z Performance of Cardiac Output, Continuous (ICD-10-PCS; 2024-04-25)
PROC: B24BZZ4 Ultrasonography of Heart with Aorta, Transesophageal (ICD-10-PCS; 2024-04-25)
PROC: 02100Z9 Bypass Coronary Artery, One Artery from Left Internal Mammary, Open Approach (ICD-10-PCS; principal; 2024-04-25 07:45)
DX: I25.10 Atherosclerotic heart disease of native coronary artery without angina pectoris (principal); J96.00 Acute respiratory failure, unspecified whether with hypoxia or hypercapnia; J44.1 Chronic obstructive pulmonary disease with (acute) exacerbation; N82.3 Fistula of vagina to large intestine; I48.0 Paroxysmal atrial fibrillation; I10 Essential (primary) hypertension; F32.A Depression, unspecified; E11.9 Type 2 diabetes mellitus without complications; F17.210 Nicotine dependence, cigarettes, uncomplicated; Z79.84 Long term (current) use of oral hypoglycemic drugs; Z82.49 Family history of ischemic heart disease and other diseases of the circulatory system; Z79.899 Other long term (current) drug therapy; Z88.0 Allergy status to penicillin
CPT/HCPCS: 0232T; 93312; 93325; 36415; 36600; 71045; 71046; 71250; 80048; 80053; 82330; 82435; 82803; 82947; 82948; 83735; 84100; 84132; 84295; 85018; 85025; 85347; 85384; 85610; 85730; 86870; 86885; 86900; 86901; 86922; 87070; 87081; 93005; 93970; 94002; 94640; 94668; 94760; 97110; 97116; 97162; 97530; A4615; A4618; A4620; A6213; A6258; A6449; A7000; A7048; C1751; G0378; J0282; J0330; J0690; J1100; J1644; J1815; J1940; J2250; J2270; J2370; J2405; J2440; J2704; J2720; J2919; J3370; J3475; J3480; J3490; J7030; J7040; J7050; J7060; J7120; P9045